=== PATIENT | male | born 1950 ===

== ENCOUNTER 2023-05-28 05:00 | Day surgery (SDC) | payer OTHER ==
[~2023-05-28] VITALS: Ht 167.6 cm; Wt 74.4 kg
[~2023-05-28 05:00] MED LIST: CHILDREN'S ASPI81 MG PO; METFORMIN HCL500 M3 PO; OSTERA TABLET1 EACH PO; TAMS0.4C PO; ZESTRIL2.5 MG PO
[2023-05-28] MEDS ORDERED: DIBUCAINE 15 GM OINT..GM. TUBE ONE (08:55)
[2023-05-28] MEDS ORDERED: POVIDONE-IODINE 118 ML BOTT TOP ONE ×2 (08:55→09:45)
[2023-05-28] MEDS ORDERED: HEMOSTATIC MATRIX 1 KIT KIT TOP ONE ×2 (08:55→09:45)
[2023-05-28] MEDS ORDERED: CEFTRIAXONE SODIUM 2,000 MG VIAL ONE (08:56)
[2023-05-28] MEDS ORDERED: METRONIDAZOLE/SODIUM CHLORIDE 500 MG/100 ML PIGGYBACK IV ONE ×2 (08:56→09:45)
[2023-05-28] MEDS ORDERED: DIBUCAINE 30 GM TUBE RECTAL ONE (09:45)
[2023-05-28] MEDS ORDERED: LIDOCAINE HCL 1%/Epi 20ML VIAL IJ ONE (09:45)
[2023-05-28] MEDS ORDERED: BUPIVACAINE HCL 30 ML VIAL IJ ONE (09:45)
[2023-05-28] MEDS ORDERED: CEFTRIAXONE SODIUM 2,000 MG VIAL IV ONE (09:45)
[2023-05-28] MEDS ORDERED: TAMSULOSIN HCL 0.4 MG CAP PO ONE ×2 (10:00→12:59)
[2023-05-28] MEDS ORDERED: OXYC1TAB9 PO (10:25)
== END 2023-05-28 15:25 | disposition home or self-care (01) ==
LOC: CIR.AMB 05:00
PROVIDERS: ATTEND Surgery
DX: K64.2 Third degree hemorrhoids (principal); K64.4 Residual hemorrhoidal skin tags; K64.8 Other hemorrhoids; E11.9 Type 2 diabetes mellitus without complications; E78.5 Hyperlipidemia, unspecified; I10 Essential (primary) hypertension; Z20.822 Contact with and (suspected) exposure to COVID-19